=== PATIENT | female | born 1980 | race Caucasian/White ===

== ENCOUNTER 2020-02-01 13:32 | Emergency (ER) | payer OTHER, SELFPAY ==
[2020-02-01] MEDS ORDERED: KETOROLAC 30 MG/ML INJ ONE (14:46)
[2020-02-01] MEDS ORDERED: predniSONE 20 MG TAB ONE (14:46)
--- NOTE | 2020-02-01 14:49 | ER ---
Nurse's Notes [facility] Name: Herminia Broderick Age: 39 yrs Sex: Female : 1980 Arrival Date: 02/01/2020 Time: 13:36 Bed 20 Private MD: Diagnosis: Acute pharyngitis;Otalgia, bilateral Presentation: 01/31 13:45 Chief complaint: Patient states: Sore throat for 4 days. Diagnosed with strep at [place] [id number] ER 3 days ago. Given steroid shot, and z-pack started yesterday. Denies N/V/D. Right ear pain now also. Coronavirus screen: Client denies travel out of the [place] in the last 14 days. congestion, fatigue, fever, sore throat, Client presents with at least one sign or symptom that may indicate coronavirus-19. Standard/surgical mask placed on the client. Ebola Screen: Patient denies travel to an Ebola-affected area in the 21 days before illness onset. Initial Sepsis Screen: Does the patient meet any 2 criteria? HR > 90 bpm. No. Patient's initial sepsis screen is negative. Does the patient have a suspected source of infection? Yes: Other: sore throat. Risk Assessment: Do you want to hurt yourself or someone else? Patient reports no desire to harm self or others. Onset of symptoms was January 29, 2020. 13:45 Method Of Arrival: Ambulatory [facility] 13:45 Acuity: TEODORO 4 ll1 Historical: - Allergies: 13:45 PENICILLINS; ll1 - PMHx: 13:45 Hypertension; Back pain; ll1 - PSHx: 13:45 Hysterectomy; ll1 - Immunization history:: Flu vaccine is not up to date. - Social history:: Smoking status: Patient reports the use of cigarette tobacco products, smokes one-half pack cigarettes per day. Screenin:53 Abuse screen: Denies threats or abuse. Denies injuries from another. Nutritional sv screening: No deficits noted. Tuberculosis screening: No symptoms or risk factors identified. Fall Risk None identified. Assessment: 14:30 General: Appears in no apparent distress. uncomfortable, Behavior is calm, cooperative, em appropriate for age, Denies fever. Pain: Complains of pain in throat. Neuro: Level of Consciousness is awake, alert, obeys commands, Oriented to person, place, time, situation, Appropriate for age. Cardiovascular: Capillary refill < 3 seconds Patient's skin is warm and dry. Respiratory: Airway is patent Respiratory effort is even, unlabored, Respiratory pattern is regular, symmetrical, Breath sounds are clear bilaterally. Denies cough. GI: Patient currently denies nausea, vomiting. EENT: Oral mucosa is moist. Throat is clear is pink Reports pain when swallowing. Derm: Skin is intact, is healthy with good turgor, Skin is pink, warm \T\ dry. Musculoskeletal: Capillary refill < 3 seconds, Range of motion: intact in all extremities. Vital Signs: 13:45 BP 112 / 84; Pulse 110; Resp 17; Temp 98.4; Pulse Ox 98% ; Weight 49.9 kg; Height 5 ft. ll1 3 in. (160.02 cm); Pain 10/10; 13:45 Body Mass Index 19.49 (49.90 kg, 160.02 cm) ll1 ED Course: 13:36 Patient arrived in ED. mr 13:47 Triage completed. ll1 13:47 Arm band placed on Patient placed in an exam room, on a stretcher. ll1 13:48 Chema Gaitan, JOSIAH is Primary Nurse. em 13:53 Patient has correct armband on for positive identification. Bed in low position. sv 14:05 Tito Mike NP is PHCP. pm1 14:05 Jaspreet Vela MD is Attending Physician. pm1 15:01 No provider procedures requiring assistance completed. Patient did not have IV access em during this emergency room visit. Administered Medications: 14:36 Drug: predniSONE 60 mg Route: PO; em 15:02 Follow up: Response: No adverse reaction; Marked relief of symptoms; Pain is decreased em 14:38 Drug: TORadol 60 mg Route: IM; Site: right gluteus; em 15:02 Follow up: Response: No adverse reaction; Marked relief of symptoms; Pain is decreased em Outcome: 14:49 Discharge ordered by . pm1 15:01 Discharged to home ambulatory. em 15:01 Condition: good 15:01 Discharge instructions given to patient, Instructed on discharge instructions, follow up and referral plans. medication usage, Demonstrated understanding of instructions, follow-up care, medications, Prescriptions given X 1. 15:01 Patient left the ED. em Signatures: Emmy Smith RN RN wilberto Salamanca, Marilyn mr Gaitan, Chema, RN RN matt Mike, Tito, INSURANCE INSPECTOR INSURANCE INSPECTOR pm1 Guadalupe Bermudez, RN RN ll1
--- NOTE | 2020-02-01 14:49 | EDPHYS ---
Physician Documentation [facility] Name: Herminia Broderick Age: 39 yrs Sex: Female : 1980 Arrival Date: 02/01/2020 Time: 13:36 Bed 20 Private MD: ED Physician Jaspreet Vela HPI: 01/31 14:25 This 39 yrs old Female presents to ER via Ambulatory with complaints of Sore pm1 Throat, Ear Pain. 14:25 The patient presents with sore throat. The patient describes throat pain as raw, pm1 scratchy. Onset: The symptoms/episode began/occurred 4 day(s) ago. Severity of symptoms: in the emergency department the symptoms have improved, mildly. Modifying factors: the symptoms are aggravated by foods, swallowing, unaware of sick contact. Associated signs and symptoms: Pertinent positives: earache, Pertinent negatives chills, cough, fever. Was diagnosed with strep throat at [place] [facility] 3 days. Given steroid shot at that time that she reports was not effective for her pain. Prescribed z-feliz that she started yesterday. Reports mild improvement in sore throat but is presenting to the ER because her pharyngitis and bilateral otalgia have not resolved. Historical: - Allergies: 13:45 PENICILLINS; ll1 - PMHx: 13:45 Hypertension; Back pain; ll1 - PSHx: 13:45 Hysterectomy; ll1 - Immunization history:: Flu vaccine is not up to date. - Social history:: Smoking status: Patient reports the use of cigarette tobacco products, smokes one-half pack cigarettes per day. ROS: 14:25 Constitutional: Negative for fever, chills, and weight loss, Eyes: Negative for injury, pm1 pain, redness, and discharge. 14:25 Neck: Negative for injury, pain, and swelling, Cardiovascular: Negative for chest pain, palpitations, and edema, Respiratory: Negative for shortness of breath, cough, wheezing, and pleuritic chest pain, Abdomen/GI: Negative for abdominal pain, nausea, vomiting, diarrhea, and constipation, Back: Negative for injury and pain, MS/Extremity: Negative for injury and deformity, Skin: Negative for injury, rash, and discoloration, Neuro: Negative for headache, weakness, numbness, tingling, and seizure. 14:25 ENT: Positive for ear pain, sore throat, Negative for drainage from ear(s). Exam: 14:25 Constitutional: This is a well developed, well nourished patient who is awake, alert, pm1 and in no acute distress. Head/Face: Normocephalic, atraumatic. Eyes: Pupils equal round and reactive to light, extra-ocular motions intact. Lids and lashes normal. Conjunctiva and sclera are non-icteric and not injected. Cornea within normal limits. Periorbital areas with no swelling, redness, or edema. 14:25 Back: No spinal tenderness. No costovertebral tenderness. Full range of motion. Skin: Warm, dry with normal turgor. Normal color with no rashes, no lesions, and no evidence of cellulitis. MS/ Extremity: Pulses equal, no cyanosis. Neurovascular intact. Full, normal range of motion. 14:25 ENT: External ear(s): are unremarkable, Ear canal(s): are normal, TM's: are normal, no evidence of bulging, no dullness, no erythema, no fluid levels, no rupture, Nose: Mouth: no acute changes, Posterior pharynx: Airway: no evidence of obstruction, Tonsils: bilaterally enlarged, with erythema, no exudate, no ulcerations, peritonsillar mass, is not appreciated, pooling of secretions, is not appreciated. 14:25 Neck: ROM/movement: is normal, is supple, Lymph nodes: lymphadenopathy is appreciated, anterior cervical nodes. 14:25 Cardiovascular: Exam negative for acute changes, Rate: normal, Rhythm: regular, Pulses: no pulse deficits are appreciated. 14:25 Respiratory: Exam negative for acute changes, respiratory distress, shortness of breath. 14:25 Neuro: Exam negative for acute changes, Orientation: is normal, Mentation: is normal, Motor: is normal. Vital Signs: 13:45 BP 112 / 84; Pulse 110; Resp 17; Temp 98.4; Pulse Ox 98% ; Weight 49.9 kg; Height 5 ft. ll1 3 in. (160.02 cm); Pain 10/10; 13:45 Body Mass Index 19.49 (49.90 kg, 160.02 cm) ll1 MDM: 14:06 Patient medically screened. pm1 14:17 Data reviewed: vital signs. Data interpreted: Pulse oximetry: on room air is 98 %. pm1 Interpretation: normal. Counseling: I had a detailed discussion with the patient and/or guardian regarding: the historical points, exam findings, and any diagnostic results supporting the discharge/admit diagnosis, the need for outpatient follow up, to return to the emergency department if symptoms worsen or persist or if there are any questions or concerns that arise at home. 14:48 Patient medically screened. pm1 14:59 ED course: ESTIMATOR BINDING Aware reviewed. Will discharge home with pain medications due to pm1 bilateral pain with pharyngitis. Patient was crying due to pain with examination of bilateral ears and palpation of lymph nodes in anterior neck. Administered Medications: 14:36 Drug: predniSONE 60 mg Route: PO; em 15:02 Follow up: Response: No adverse reaction; Marked relief of symptoms; Pain is decreased em 14:38 Drug: TORadol 60 mg Route: IM; Site: right gluteus; em 15:02 Follow up: Response: No adverse reaction; Marked relief of symptoms; Pain is decreased em Disposition: 18:49 Co-signature as Attending Physician, Jaspreet Vela MD Did not see or evaluate patient. ps1 Signature for administrative purposes. Available for consultation in ED during the patient encounter. . Disposition: 02/01/20 14:49 Discharged to Home. Impression: Acute pharyngitis, Otalgia, bilateral. - Condition is Stable. - Discharge Instructions: Earache, Adult, Pharyngitis. - Prescriptions for Tylenol- Codeine #3 300-30 mg Oral Tablet - take 2 tablets by ORAL route every 6 hours As needed; 20 tablet. - Medication Reconciliation Form, Thank You Letter, Antibiotic Education, Prescription Opioid Use form. - Follow up: Emergency Department; When: As needed; Reason: Worsening of condition. Follow up: Private Physician; When: 2 - 3 days; Reason: Recheck today's complaints, Continuance of care, Re-evaluation by your physician. - Problem is new. - Symptoms have improved. Signatures: Chema Gaitan RN RN em Tito Mike, TELETYPESETTER MONITOR TELETYPESETTER MONITOR pm1 Jaspreet Vela MD MD ps1 Guadalupe Bermudez RN RN ll1 Corrections: (The following items were deleted from the chart) 14:49 14:49 02/01/2020 14:49 Discharged to Home. Impression: Acute pharyngitis. Condition is pm1 Stable. Forms are Medication Reconciliation Form, Thank You Letter, Antibiotic Education, Prescription Opioid Use. Follow up: Emergency Department; When: As needed; Reason: Worsening of condition. Follow up: Private Physician; When: 2 - 3 days; Reason: Recheck today's complaints, Continuance of care, Re-evaluation by your physician. Problem is new. Symptoms have improved. pm1 15:01 14:49 02/01/2020 14:49 Discharged to Home. Impression: Acute pharyngitis; Otalgia, em bilateral. Condition is Stable. Discharge Instructions: Pharyngitis. Forms are Medication Reconciliation Form, Thank You Letter, Antibiotic Education, Prescription Opioid Use. Follow up: Emergency Department; When: As needed; Reason: Worsening of condition. Follow up: Private Physician; When: 2 - 3 days; Reason: Recheck today's complaints, Continuance of care, Re-evaluation by your physician. Problem is new. Symptoms have improved. pm1
[2020-02-01 15:07] VITALS: BP 112/84; TEMP 98.4; O2SAT 98
== END 2020-02-01 15:01 | disposition home or self-care (01) ==
LOC: ER 13:32
DX: H92.03 Otalgia, bilateral (principal); I10 Essential (primary) hypertension; Z88.0 Allergy status to penicillin
CPT/HCPCS: 96372; 99283; J7512

== ENCOUNTER 2020-03-26 14:55 | Emergency (ER) | payer SELFPAY ==
[2020-03-26] MEDS ORDERED: HYDROCODONE/APAP 5/325 MG TAB ONE (15:23)
--- NOTE | 2020-03-26 15:32 | RAD REPORT ---
EXAM DESCRIPTION: CT - Spine Lumbar Wo Con - 03/26/2020 3:22 pm CLINICAL HISTORY: Radiculopathy. LOWER BACK PAIN COMPARISON: No comparisons TECHNIQUE: Axial noncontrast CT imaging of the lumbar spine was performed with coronal and sagittal re-formatted images. All CT scans are performed using dose optimization technique as appropriate and may include automated exposure control or mA/KV adjustment according to patient size. FINDINGS: No acute lumbar spine fracture seen. No aggressive marrow pattern or malalignment. Paraspinal tissues are normal in thickness. No paraspinal abscess or hematoma seen. Mild bulging of disc material seen lower lumbar spine. No high-grade canal stenosis seen. Nonobstruct ing left nephrolithiasis. IMPRESSION: No acute lumbar spine abnormality. Mild lower lumbar spondylosis is likely present. Left nephrolithiasis.
[2020-03-26 16:27] LABS: Urine Blood NEGATIVE (NEG); Urine Glucose NEGATIVE (NEG); Urine Protein NEGATIVE (NEG); Urine pH 5.5 (5.0-7.0)
--- NOTE | 2020-03-26 16:33 | ER ---
Nurse's Notes [facility] Name: Herminia Broderick Age: 39 yrs Sex: Female : 1980 Arrival Date: 03/26/2020 Time: 14:56 Bed Waiting [facility] MD: Diagnosis: Low back pain Presentation: 03/26 15:05 Chief complaint: Patient states: low back pain that began after lifting heavy object ss just prior to arrival. Coronavirus screen: Client denies travel out of the [place] in the last 14 days. Ebola Screen: Patient denies exposure to infectious person. Patient denies travel to an Ebola-affected area in the 21 days before illness onset. Initial Sepsis Screen: Does the patient meet any 2 criteria? HR > 90 bpm. Does the patient have a suspected source of infection? No. Patient's initial sepsis screen is negative. Risk Assessment: Do you want to hurt yourself or someone else? Patient reports no desire to harm self or others. Onset of symptoms was March 26, 2020. 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 - Social history:: Smoking status: Patient reports the use of cigarette tobacco products, smokes one-half pack cigarettes per day. Screenin:05 Abuse screen: Denies threats or abuse. Denies injuries from another. Nutritional ss screening: No deficits noted. Tuberculosis screening: Never had TB. Fall Risk None identified. Assessment: 15:05 General: Appears distressed, uncomfortable, slender, Behavior is cooperative, anxious, ss tearful. Pain: Complains of pain in low back Pain currently is 8 out of 10 on a pain scale. Pain began 30 min ago. Is continuous. Neuro: Level of Consciousness is awake, alert, obeys commands, Oriented to person, place, time, situation. Respiratory: Airway is patent Respiratory effort is even, unlabored, Respiratory pattern is regular, symmetrical. GI: Patient currently denies diarrhea, nausea, vomiting. : No signs and/or symptoms were reported regarding the genitourinary system. EENT: Nares are clear Oral mucosa is moist. Derm: Skin is intact, is healthy with good turgor, Skin is dry, Skin is pink, warm \T\ dry. normal. Vital Signs: 15:05 BP 129 / 99; Pulse 129; Resp 20; Temp 97.3; Pulse Ox 98% on R/A; Weight 52.16 kg; ss Height 5 ft. 3 in. (160.02 cm); Pain 8/10; 16:47 Pulse 118; ss 16:47 Pain 6/10; ss 15:05 Body Mass Index 20.37 (52.16 kg, 160.02 cm) ss ED Course: 14:56 Patient arrived in ED. ds1 15:05 Patient has correct armband on for positive identification. Bed in low position. Call ss light in reach. 15:07 Herminia Walters FNP-C is PHCP. kb 15:07 Dean Hernandez MD is Attending Physician. kb 15:07 Triage completed. ss 15:07 Arm band placed on right wrist. ss 15:22 CT Lumbar Spine Wo Con In Process Unspecified. EDMS 16:46 Danni Jauregui, JOSIAH is Primary Nurse. ss 16:47 No provider procedures requiring assistance completed. Patient did not have IV access ss during this emergency room visit. Administered Medications: 15:10 Drug: [place] 5 mg-325 mg 1 tabs Route: PO; ss 16:48 Follow up: Response: No adverse reaction; Pain is decreased ss Outcome: 16:32 Discharge ordered by . kb 16:47 Discharged to home ambulatory. ss 16:47 Condition: good 16:47 Discharge instructions given to patient, family, Instructed on discharge instructions, follow up and referral plans. medication usage, Demonstrated understanding of instructions, follow-up care, medications, Prescriptions given X 2. 16:47 Patient left the ED. ss Signatures: Dispatcher [employer] EDMS Herminia Walters FNP-C FNP-Luna Castro ds1 Danni Jauregui, JOSIAH RN ss
--- NOTE | 2020-03-26 16:33 | EDPHYS ---
Physician Documentation [facility] Name: Herminia Broderick Age: 39 yrs Sex: Female : 1980 Arrival Date: 03/26/2020 Time: 14:56 Bed Waiting Private MD: AILYN Physician Dean Hernandez HPI: 03/26 16:49 This 39 yrs old Female presents to ER via Ambulatory with complaints of Back kb Pain. 16:49 The patient presents with pain that is acute. The symptoms are located in the low back. kb Onset: The symptoms/episode began/occurred just prior to arrival. The pain does not radiate. Associated signs and symptoms: The patient has no apparent associated signs or symptoms. The problem was sustained when lifting heavy object. Modifying factors: The patient symptoms are alleviated by nothing, the patient symptoms are aggravated by any movement. Severity of symptoms: At their worst the symptoms were moderate, in the emergency department the symptoms are unchanged. The patient has not experienced similar symptoms in the past. The patient has not recently seen a physician. Pt reports she was lifting something heavy and started having pain to low back. . 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 - Social history:: Smoking status: Patient reports the use of cigarette tobacco products, smokes one-half pack cigarettes per day. ROS: 16:47 Constitutional: Negative for fever, chills, and weight loss, Cardiovascular: Negative kb for chest pain, palpitations, and edema, Respiratory: Negative for shortness of breath, cough, wheezing, and pleuritic chest pain, Abdomen/GI: Negative for abdominal pain, nausea, vomiting, diarrhea, and constipation, : Negative for injury, bleeding, discharge, and swelling, MS/Extremity: Negative for injury and deformity, Skin: Negative for injury, rash, and discoloration, Neuro: Negative for headache, weakness, numbness, tingling, and seizure. 16:47 Back: Positive for pain at rest, pain with movement. Exam: 16:47 Constitutional: This is a well developed, well nourished patient who is awake, alert, kb and in no acute distress. Head/Face: Normocephalic, atraumatic. Chest/axilla: Normal chest wall appearance and motion. Nontender with no deformity. No lesions are appreciated. Cardiovascular: Regular rate and rhythm with a normal S1 and S2. No gallops, murmurs, or rubs. Normal PMI, no JVD. No pulse deficits. Respiratory: Lungs have equal breath sounds bilaterally, clear to auscultation and percussion. No rales, rhonchi or wheezes noted. No increased work of breathing, no retractions or nasal flaring. Abdomen/GI: Soft, non-tender, with normal bowel sounds. No distension or tympany. No guarding or rebound. No evidence of tenderness throughout. Skin: Warm, dry with normal turgor. Normal color with no rashes, no lesions, and no evidence of cellulitis. MS/ Extremity: Pulses equal, no cyanosis. Neurovascular intact. Full, normal range of motion. Neuro: Awake and alert, GCS 15, oriented to person, place, time, and situation. Cranial nerves II-XII grossly intact. Motor strength 5/5 in all extremities. Sensory grossly intact. Cerebellar exam normal. Normal gait. 16:47 Back: pain, that is mild, that is moderate, of the low back area, ROM is painful, with all movement, normal spinal alignment noted, CVA tenderness, is absent. 19:42 Neuro: Exam negative for acute changes. Vital Signs: 15:05 BP 129 / 99; Pulse 129; Resp 20; Temp 97.3; Pulse Ox 98% on R/A; Weight 52.16 kg; ss Height 5 ft. 3 in. (160.02 cm); Pain 8/10; 16:47 Pulse 118; ss 16:47 Pain 6/10; ss 15:05 Body Mass Index 20.37 (52.16 kg, 160.02 cm) MDM: 15:07 Patient medically screened. kb 16:47 Data reviewed: vital signs, nurses notes. Data interpreted: Pulse oximetry: on room air kb is 98 %. Interpretation: normal. Counseling: I had a detailed discussion with the patient and/or guardian regarding: the historical points, exam findings, and any diagnostic results supporting the discharge/admit diagnosis, lab results, radiology results, the need for outpatient follow up, a family practitioner, to return to the emergency department if symptoms worsen or persist or if there are any questions or concerns that arise at home. 03/26 16:15 Order name: Urine Dipstick--Ancillary (enter results); Complete Time: 16:31 eb 03/26 15:07 Order name: CT Lumbar Spine Wo Con; Complete Time: 15:35 kb 03/26 15:36 Order name: Urine Dipstick-Ancillary (obtain specimen) kb Administered Medications: 15:10 Drug: [place] 5 mg-325 mg 1 tabs Route: PO; ss 16:48 Follow up: Response: No adverse reaction; Pain is decreased ss Disposition: 03/27 08:29 Co-signature as Attending Physician, Dean Hernandez MD I agree with the assessment and carolin plan of care. Disposition: 03/26/20 16:32 Discharged to Home. Impression: Low back pain. - Condition is Stable. - Discharge Instructions: Musculoskeletal Pain, Back Injury Prevention, [id number], Back Pain, Adult, [id number]. - Prescriptions for Cyclobenzaprine 10 mg Oral Tablet - take 1 tablet by ORAL route every 8 hours As needed; 21 tablet. Diclofenac Sodium 75 mg Oral Tablet, Delayed Release (E.C.) - take 1 tablet by ORAL route 2 times per day As needed; 30 tablet. - Medication Reconciliation Form, Thank You Letter, Antibiotic Education, Prescription Opioid Use form. - Follow up: Emergency Department; When: As needed; Reason: Worsening of condition. Follow up: Private Physician; When: 2 - 3 days; Reason: Recheck today's complaints, Continuance of care, Re-evaluation by your physician. Signatures: Dispatcher [employer] Herminia Young, DARREL-C DARREL-Dean Lipscomb MD MD cha Smirch, Shelby, RN RN ss Corrections: (The following items were deleted from the chart) 03/26 16:47 16:32 03/26/2020 16:32 Discharged to Home. Impression: Low back pain. Condition is ss Stable. Forms are Medication Reconciliation Form, Thank You Letter, Antibiotic Education, Prescription Opioid Use. Follow up: Emergency Department; When: As needed; Reason: Worsening of condition. Follow up: Private Physician; When: 2 - 3 days; Reason: Recheck today's complaints, Continuance of care, Re-evaluation by your physician. kb
[2020-03-31 18:21] VITALS: BP 129/99; TEMP 97.3; O2SAT 98
== END 2020-03-26 16:47 | disposition home or self-care (01) ==
LOC: ER 14:55
DX: M54.5 Low back pain (principal); I10 Essential (primary) hypertension; F17.210 Nicotine dependence, cigarettes, uncomplicated; Z88.0 Allergy status to penicillin
CPT/HCPCS: 72131; 81003; 99283

== ENCOUNTER 2021-07-09 13:20 | Emergency (ER) | payer SELFPAY ==
--- NOTE | 2021-07-09 14:37 | RAD REPORT ---
EXAM DESCRIPTION: RAD - Knee Left 3 View - 07/09/2021 2:16 pm CLINICAL HISTORY: PAIN COMPARISON: No comparisons FINDINGS: No acute fracture. No malalignment. Lateral compartment spurring. Intramedullary renee in th e femur. Distal interlocking screws. IMPRESSION: No acute osseous abnormality involving the left knee.
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
[2021-07-09] MEDS ORDERED: HYDROCODONE/APAP 7.5/325 MG TAB ONE (14:48)
[2021-07-09 15:01] VITALS: TEMP 98.2; O2SAT 100
[2021-07-09 15:02] VITALS: BP 133/63
== END 2021-07-09 14:47 | disposition home or self-care (01) ==
LOC: ER 13:20
DX: M25.562 Pain in left knee (principal); W18.30XA Fall on same level, unspecified, initial encounter; Y93.01 Activity, walking, marching and hiking; Y92.009 Unspecified place in unspecified non-institutional (private) residence as the place of occurrence of the external cause; I10 Essential (primary) hypertension; F17.210 Nicotine dependence, cigarettes, uncomplicated; Z88.0 Allergy status to penicillin; Z88.1 Allergy status to other antibiotic agents; Z88.5 Allergy status to narcotic agent
CPT/HCPCS: 99283

== ENCOUNTER 2023-03-07 12:24 | Emergency (ER) | payer SELFPAY ==
--- NOTE | 2023-03-07 13:18 | EDPHYS ---
Physician Documentation [facility] Name: Herminia Broderick Age: 42 yrs Sex: Female : 1980 Arrival Date: 03/07/2023 Time: 12:24 Bed IW2 Private MD: ED Physician Jeferson Odom HPI: 03/07 13:34 This 42 yrs old Female presents to ER via Ambulatory with complaints of Mouth Swelling kb - Gums. 13:34 Patient is a 42-year-old female who presents for pain, swelling and redness to gums. kb States it began yesterday and got worse today. Denies fever.. 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 - Social history:: Smoking status: Patient reports the use of cigarette tobacco products, smokes one-half pack cigarettes per day. ROS: 13:24 Constitutional: Negative for fever, chills, and weight loss, kb 13:24 ENT: Positive for Gum pain 13:24 All other systems are negative, Exam: 13:30 Constitutional: This is a well developed, well nourished patient who is awake, alert, kb and in no acute distress. Head/Face: Normocephalic, atraumatic. ENT: Moist Mucous membranes Cardiovascular: Regular rate Respiratory: Respirations even and unlabored. No increased work of breathing. Talking in full sentences Abdomen/GI: Soft, non-tender. No distention Skin: Warm, dry with normal turgor. Normal color. MS/ Extremity: Pulses equal, no cyanosis. Neurovascular intact. Full, normal range of motion. Neuro: Awake and alert, GCS 15, oriented to person, place, time, and situation. Moves all extremities. Normal gait. 13:30 ENT: Dental exam: dental caries, gum swelling, that is moderate, specifically in the upper right cuspid (#6), upper right lateral incisor (#7), upper right central Incisor (#8), upper left central incisor (#9), upper left lateral incisor (#10) and upper left cuspid (#11), missing teeth, pain, that is moderate, specifically in the mouth, Vital Signs: 12:41 BP 131 / 96; Pulse 105; Resp 18; Temp 97.8; Pulse Ox 100% ; Weight 54.43 kg; Height 5 mb9 ft. 3 in. ; Pain 9/10; 12:41 Body Mass Index 21.26 (54.43 kg, 160.02 cm) mb9 12:41 Pain Scale: Adult mb9 MDM: 12:28 Patient medically screened. kb 13:33 Differential diagnosis: dental caries, gingivitis, dental abscess, pericoronitis. Data kb reviewed: vital signs, nurses notes. Counseling: I had a detailed discussion with the patient and/or guardian regarding the historical points, exam findings, and any diagnostic results supporting the discharge/admit diagnosis, the need for outpatient follow up, a dentist, to return to the emergency department if symptoms worsen or persist or if there are any questions or concerns that arise at home. Administered Medications: 13:00 Drug: [place] PO 10 mg-325 mg 1 tabs PO once Route: PO; mb9 13:27 Follow up: Response: No adverse reaction mb9 13:00 Drug: Clindamycin PO 300 mg PO once Route: PO; mb9 13:27 Follow up: Response: No adverse reaction mb9 Disposition Summary: 03/07/23 13:17 Discharge Ordered Notes: Location: Home kb Condition: Stable kb Diagnosis - Other specified disorders of teeth and supporting structures kb Followup: kb - With: Emergency Department - When: As needed - Reason: Worsening of condition Followup: kb - With: Private Physician - When: 2 - 3 days - Reason: Recheck today's complaints, Continuance of care, Re-evaluation by your physician Discharge Instructions: - Discharge Summary Sheet kb - Dental Pain, [id number] kb - Dental Abscess, [id number] kb - Dental Caries, Adult, [id number] kb Forms: - Medication Reconciliation Form kb - Thank You Letter kb - Antibiotic Education kb - Prescription Opioid Use kb - Patient Portal Instructions kb - Leadership Thank You Letter kb Prescriptions: - Clindamycin HCl 300 mg Oral Capsule - take 1 capsule ORAL route every 6 hours for 10 days; 40 capsule; Refills: 0, kb Product Selection Permitted Addendum: 03/09/2023 20:12 I was immediately available for consultation during this patient's visit. I did not e c2 personally see the patient or guide the patient's care.. Signatures: Herminia Walters FNP-C FNP-Ckb Breneman, Mary Beth, RN RN mb9 Jeferson Odom MD MD ec2
--- NOTE | 2023-03-07 13:18 | ER ---
Nurse's Notes [facility] Name: Herminia Broderick Age: 42 yrs Sex: Female : 1980 Arrival Date: 03/07/2023 Time: 12:24 Bed IW2 Private MD: Diagnosis: Other specified disorders of teeth and supporting structures Presentation: 03/07 12:41 Chief complaint: Patient states: "My gums and teeth hurt have been hurting and swollen mb9 since this morning. I don't have a dentist". Coronavirus screen: Vaccine status: Patient reports being unvaccinated. Ebola Screen: No symptoms or risks identified at this time. Initial Sepsis Screen: Does the patient meet any 2 criteria? No. Patient's initial sepsis screen is negative. Does the patient have a suspected source of infection? No. Patient's initial sepsis screen is negative. Risk Assessment: Do you want to hurt yourself or someone else? Patient reports no desire to harm self or others. Onset of symptoms was March 07, 2023. 12:41 Method Of Arrival: Ambulatory [facility] 12:41 Acuity: TEODORO 4 mb9 Triage Assessment: 12:44 General: Appears in no apparent distress. Behavior is calm, cooperative. Pain: mb9 Complains of pain in mouth Pain currently is 9 out of 10 on a pain scale. Quality of pain is described as throbbing, Pain began suddenly, Is continuous. EENT: Poor dentition noted. Neuro: Stark Agitation-Sedation Scale (RASS): 0 - Alert and Calm Level of Consciousness is awake, alert, obeys commands, Oriented to person, place, time, situation, Appropriate for age. Cardiovascular: Patient's skin is warm and dry. Respiratory: Airway is patent Respiratory effort is even, unlabored, Respiratory pattern is regular, symmetrical. GI: No signs and/or symptoms were reported involving the gastrointestinal system. : No signs and/or symptoms were reported regarding the genitourinary system. Derm: Skin is pink, warm \\T\\ dry. Musculoskeletal: Range of motion: intact in all extremities. 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 - Social history:: Smoking status: Patient reports the use of cigarette tobacco products, smokes one-half pack cigarettes per day. Assessment: 12:44 Reassessment: see triage assessment. mb9 13:26 Reassessment: No changes from previously documented assessment. Patient and/or family mb9 updated on plan of care and expected duration. Pain level reassessed. Patient is alert, oriented x 3, equal unlabored respirations, skin warm/dry/pink. Vital Signs: 12:41 BP 131 / 96; Pulse 105; Resp 18; Temp 97.8; Pulse Ox 100% ; Weight 54.43 kg; Height 5 mb9 ft. 3 in. ; Pain 9/10; 12:41 Body Mass Index 21.26 (54.43 kg, 160.02 cm) mb9 12:41 Pain Scale: Adult mb9 ED Course: 12:26 Patient arrived in ED. mg5 12:28 Herminia Walters FNP-C [facility]. kb 12:28 Jeferson Odom MD is Attending Physician. kb 12:43 Triage completed. mb9 12:43 Arm band placed on. mb9 13:26 Marilyn Guevara, JOSIAH is Primary Nurse. mb9 13:26 Adult w/ patient. mb9 13:26 No provider procedures requiring assistance completed. Patient did not have IV access mb9 during this emergency room visit. Administered Medications: 13:00 Drug: [place] PO 10 mg-325 mg 1 tabs PO once Route: PO; mb9 13:27 Follow up: Response: No adverse reaction mb9 13:00 Drug: Clindamycin PO 300 mg PO once Route: PO; mb9 13:27 Follow up: Response: No adverse reaction mb9 Outcome: 13:17 Discharge ordered by . kb 13:26 Discharged to home ambulatory, mb9 13:26 Condition: stable 13:26 Discharge instructions given to patient, Instructed on discharge instructions, follow up and referral plans. Demonstrated understanding of instructions, follow-up care, medications, Prescriptions given X 1, 13:27 Patient left the ED. mb9 Signatures: Herminia Walters, SHIRT BANDER-C SHIRT BANDER-Ckb Marilyn Guevara, RN RN mb9 Alena Sanchez mg5
[2023-03-07] MEDS ORDERED: HYDROCODONE/APAP 10/325 TAB ONE (13:36)
[2023-03-07 13:47] VITALS: BP 131/96; TEMP 97.8; O2SAT 100
== END 2023-03-07 13:27 | disposition home or self-care (01) ==
LOC: ER 12:24
DX: K02.9 Dental caries, unspecified (principal)
CPT/HCPCS: 99283